=== PATIENT | female | born 1955 | race Caucasian/White ===

== ENCOUNTER 2022-04-29 20:45 | Emergency (ER) | payer MEDICARE, OTHER ==
[2022-04-29] MEDS ORDERED: Bupivacaine 0.5% 10 ML SDV INJECT ONE (22:20)
[2022-04-29] MEDS ORDERED: Lidocaine 1% 10 ML MDV INJECT ONE (22:20)
[2022-04-29] MEDS ORDERED: Ibuprofen 600 MG Tab PO ONE (23:50)
[2022-04-29] MEDS ORDERED: Diphtheria,Pertussis(Acell),Tetanus Vaccine 0.5 ML Syringe IM ONE (23:50)
== END 2022-04-30 00:06 | disposition home or self-care (01) ==
LOC: JD.ED 20:45
DX: S62.631A Displaced fracture of distal phalanx of left index finger, initial encounter for closed fracture (principal); S01.311A Laceration without foreign body of right ear, initial encounter; Z23 Encounter for immunization; V80.010A Animal-rider injured by fall from or being thrown from horse in noncollision accident, initial encounter
CPT/HCPCS: 12013; 70450; 73140; 90471; 90715; 99284; A9270; J3490; 99283